=== PATIENT | female | born 1970 | race Caucasian/White ===

== ENCOUNTER 2024-03-23 19:31 | Emergency (ER) | payer BC, SELFPAY ==
[2024-03-23 19:44] VITALS: BP 158/76; PULSE 76; TEMP 36.8; O2SAT 98; BMI 28.2
--- NOTE | 2024-03-23 20:06 | XR_ITS ---
The [address] [address] Patient Name: BROOKS HOLDEN MRN: [id number] date: 1970 Sex: F Assigned Patient Location: ER Current Patient Location: ED.MAIN Accession/Order Number: [id number] Exam Date: 03/23/2024 20:20 Report Date: 03/23/2024 21:34 At the request of: PANCHO CADE Procedure: XR hip RT 2V w/ pelvis EXAM: XR hip RT 2V w/ pelvis HISTORY: pain COMPARISON: None. TECHNIQUE: 3 views of right hip FINDINGS: There is no acute fracture or dislocation. The soft tissue is unremarkable. XR/XR hip RT 2V w/ pelvis IMPRESSION: No acute process. Electronically authenticated by: PENG CARRERO Date: 03/23/2024 21:34
--- NOTE | 2024-03-23 20:07 | ED.LOWEXI1 ---
HPI HPI - Extremity Injury (Lower) General Chief Complaint: Extremity Injury, Lower Stated Complaint: Abdominal Pain Time Seen by Provider: 03/23/24 19:39 Source: patient Mode of arrival: walk-in Limitations: no limitations History of Present Illness HPI Narrative: 53-year-old female presents to the emergency department with ongoing right hip, inguinal pain. Has been evaluated in the past for this, sent to PT, pain management, but did not feel it was helping at that time. [place] like she could manage it herself. However, symptoms have been worsening. Pain worsens with bearing weight, movement, slightly worse with palpation. Denies any blunt trauma, motor or sensory changes, paresthesias. Quality:?as above Severity:?Moderate Timing:?As above, worsening Context: Normal setting and activity? Modifying factors:?As above Associated symptoms: None Related Data Previous Rx's ?Medication ?Instructions ?Recorded cyclobenzaprine 5 mg tablet 5 mg PO TID PRN muscle pain #14 03/23/24 tabs hydrocodone 5 mg-acetaminophen 325 1 tab PO Q8H PRN pain 3 days #8 03/23/24 mg tablet tabs Allergies Allergy/AdvReac Type Severity Reaction Status Date / Time No Known Drug Allergies Allergy Verified 03/23/24 19:43 Opioid HPI Opioid Management Most Recent Pain and Opioid Data: Last Pain Scale 8 03/23/24 20:30 Review of Systems ROS Constitutional Denies: fatigue or malaise Musculoskeletal Reports: extremity pain and joint pain; Denies: extremity swelling Neurological Denies: numbness in extremities or weakness in extremities Endocrine Denies: fatigue Exam Constitutional Vital Signs, click to edit/add: Last Vital Signs Temp 98.3 F 03/23/24 19:44 Pulse 76 03/23/24 19:44 Resp 18 03/23/24 19:44 BP 158/76 H 03/23/24 19:44 Pulse Ox 98 03/23/24 19:44 O2 Del Method Room Air 03/23/24 19:44 Documenting provider has reviewed patient's vital signs: yes Common normals: no apparent distress, oriented x3 and well nourished General appearance: well developed HENMT Common normals: normocephalic and head/scalp atraumatic Head and scalp: normocephalic and atraumatic Cardio Peripheral pulses: dorsalis pedis pulses present bilateral Extremity Other: Right hip: + Mild tenderness to the right inguinal region.? No tenderness to the lateral aspect of the hip, back, remainder of leg. When she actively flexes the hip, she has sharp, severe increase in pain in the inguinal region. Pain also reproduced with passive range of motion.? No swelling, ecchymosis, discoloration, crepitus, deformity, instability, warmth.? ROM somewhat limited due to pain.? Strength 5/5 Neuro Common normals: oriented x3, no focal motor deficits and no sensory deficits noted Psych Common normals: mental status grossly normal and thought process normal Thought process: normal thought process Course Reevaluation(s) Reevaluation #1: Discussed with patient results, plan, and disposition. She is agreeable. Time: 21:48 Vital Signs Vital signs: Vital Signs Temperature 98.3 F 03/23/24 19:44 Pulse Rate 76 03/23/24 19:44 Respiratory Rate 18 03/23/24 19:44 Blood Pressure 158/76 H 03/23/24 19:44 Pulse Oximetry 98 03/23/24 19:44 Oxygen Delivery Method Room Air 03/23/24 19:44 Temperature 98.3 F 03/23/24 19:44 Pulse Rate 76 03/23/24 19:44 Respiratory Rate 18 03/23/24 19:44 Blood Pressure 158/76 H 03/23/24 19:44 Pulse Oximetry 98 03/23/24 19:44 Oxygen Delivery Method Room Air 03/23/24 19:44 MDM - Extremity Injury (Lower) MDM Narrative Medical decision making narrative: This is a pleasant 53-year-old female presents to the emergency department with complaint of right hip pain. Is been ongoing problem, but has been worsening. On arrival, afebrile, vital signs are stable. Exam, nontoxic, well-appearing patient in no distress. She has mild tenderness to the inguinal region. However, pain acutely worsens when she actively attempts to flex her hip. Pain also worsens with passive range of motion. Neurovascularly intact. X-ray imaging, per radiologist reveals no acute findings Favor hip flexor strain Fracture, dislocation less likely based on imaging Disposition ? The patient was discharged. Plan: Patient will be discharged to home. Condition at time of disposition: stable Recommend follow-up with orthopedics, possible physical therapy Prescription for limited supply of [place] sent to pharmacy. Prescription for Flexeril was also sent to pharmacy Advised to follow up with primary provider. Advised to return for any worsening and/or development of new, concerning signs or symptoms PLEASE NOTE: Portions of the medical record may have been produced using electronic implementation specialist payroll and may contain errors with respect to translation of words which may not have been identified prior to finalization of the chart. Medical Records Attestation: I reviewed the patient's medical records. Imaging Data right hip: Attestation: I have reviewed the pertinent imaging results. Radiologist's impression: ITS Impressions Hip/Pelvis X-Ray 03/23/24 20:06 IMPRESSION: No acute process. Electronically authenticated by: PENG CARRERO Date: 03/23/2024 21:34 Discharge Plan Discharge Stand Alone Forms: Portal Instructions Chief Complaint: Extremity Injury, Lower Clinical Impression: Acute pain of right hip Strain of flexor muscle of right hip Qualifiers: Encounter type: initial encounter Qualified Code(s): S76.011A - Strain of muscle, fascia and tendon of right hip, initial encounter Patient Disposition: Home, Self-Care Time of Disposition Decision: 21:45 Condition: Good Mode of Transportation: Private Vehicle Prescriptions / Home Meds: New hydrocodone-acetaminophen 5-325 mg tablet 1 tab PO Q8H PRN (Reason: pain) 3 Days Qty: 8 0RF cyclobenzaprine 5 mg tablet 5 mg PO TID PRN (Reason: muscle pain) Qty: 14 0RF Print Language: Macedonian Instructions: Groin Strain (ED) Referrals: [facility]DER[facility] PEMBERTON [Primary Care Provider] - 1 week Gurvinder Cook MD [Physician] - 03/25/24 Discharge Date/Time: 03/23/24 21:58
[2024-03-23] MEDS: HYDROCODONE/ACET 5-325 MG TABLET 1 TAB PO (20:30)
[2024-03-23] MEDS: IBUPROFEN 600 MG TABLET PO (20:31)
== END 2024-03-23 21:58 | disposition home or self-care (01) ==
PROVIDERS: Emergency Provider Internal Medicine; PCP Student in an Organized Health Care Education/Training Program
DX: M25.551 Pain in right hip (principal)
CPT/HCPCS: 73502; 99283